=== PATIENT | male | born 1950 | race Caucasian/White ===

== ENCOUNTER 2017-07-31 08:42 | Outpatient (CLI) | payer MEDICARE, OTHER | END 2017-07-31 08:43 | disposition home or self-care (01) | LOC: SC 08:42 | PROVIDERS: ATTEND Nurse Practitioner Family | DX: G47.33 Obstructive sleep apnea (adult) (pediatric) (principal) | CPT/HCPCS: 99214; G0463; 99212 ==

== ENCOUNTER 2017-11-27 09:32 | Outpatient (CLI) | payer MEDICARE, OTHER | END 2017-11-27 09:33 | disposition home or self-care (01) | LOC: SC 09:32 | PROVIDERS: ATTEND Internal Medicine Pulmonary Disease | DX: G47.33 Obstructive sleep apnea (adult) (pediatric) (principal) | CPT/HCPCS: 99213; G0463; 99212 ==

== ENCOUNTER 2018-02-20 10:16 | Outpatient (CLI) | payer MEDICARE, OTHER ==
[2018-02-20 16:17] LABS: RHEUMATOID FACTOR NEGATIVE (Negative)
== END 2018-02-20 10:17 | disposition home or self-care (01) ==
LOC: LAB.WCP 10:16
PROVIDERS: ATTEND Internal Medicine Rheumatology
DX: M25.50 Pain in unspecified joint (principal)
CPT/HCPCS: 36415; 85651; 86140; 86200; 86430

== ENCOUNTER 2019-03-24 14:14 | Outpatient (CLI) | payer MEDICARE, OTHER | END 2019-03-24 14:15 | disposition home or self-care (01) | LOC: SC 14:14 | PROVIDERS: ATTEND Internal Medicine Pulmonary Disease | DX: G47.33 Obstructive sleep apnea (adult) (pediatric) (principal) | CPT/HCPCS: 99213; G0463; 99212 ==

== ENCOUNTER 2019-07-21 09:19 | Outpatient (CLI) | payer MEDICARE, OTHER ==
--- NOTE | 2019-07-21 10:03 | SLEEP CARE CONSULTATION ---
Information from patient questionnaire entered by Sabi Boateng. I have reviewed and concur with the information entered by Sabi Boateng. This document represents the service I personally performed and the decisions made by me, Emiyl Alvarado MD, [facility]. History of Present Illness Previous diagnosis: Severe, Obstructive Sleep Apnea-Hypopnea Syndrome AHI: 36.3 Reason for CPAP/BiPAP follow up: other (2 month follow up - pressure change) Equipment type: BiPAP Equipment obtained from: [employer] Prior sleep studies: Yes Year and Where: 2006 [facility], 2012 [facility] HPI additional information: HPI: Mr. Napoles was diagnosed to have severe obstructive sleep apnea-hypopnea syndrome and returns today for follow up of BiPAP therapy after the pressure was lowered three months ago for comfort. The patient gets his supplies from [employer]. He wears a Respironics AmaraView full face mask. He continues to use the device nightly and all through the night. The compliance report shows that he uses the device 60 nights out of the past 60 nights, averaging 7.4 hours a night. He complains of no particular problem with the device such as soreness on the face, dry nose, epistaxis, nasal congestion or headache. He thinks that the pressure of 19/15 cmH2O is comfortable (21/17 cmH2O was too high). On the BiPAP therapy he notices improvement in his sleep quality, and that he wakes up feeling fresher in the morning and more awake/alert during the day. [place] Sleepiness Scale score is 7. His notices no snore at all. The average residual AHI is 3.6 (was 3.0 on the higher setting); and large leak, 36 minutes a night. CPAP Compliance Data - Data Reviewed with Patient Average duration of nightly device use: 7H 21M Compliance rate %: 100 Current pressure setting (cmH2O): 19/15 Humidity settin Subjective Initial [place] Sleepiness Scale score: 13 Current [place] Sleepiness Scale score: 7 Allergies and Home Medications Drug allergies reviewed: Yes Home medication list reviewed: Yes Review of Systems Review of systems same as previous: Yes Physical Exam Height: 5 ft 10 in Weight: 208 lb Body Mass Index: 29.8 BMI Classification: Overweight Impression and Plan IMPRESSION: 1. Obstructive Sleep Apnea-Hypopnea Syndrome, severe, with the patient continuing to do well on nasal CPAP therapy. He has excellent compliance and significant clinical benefits. The current pressure appears effective and comfortable. Overall, he is very satisfied with treatment and plans to continue with it long-term. No adjustment is necessary today. PLAN: 1. Leave BiPAP at 19/15 cm H2O. 2. Try to lose weight 3. Prescription made for a heated hose and ResMed AirTouch F-20 full face mask. 4. Return for follow up in a year or earlier if there is any problem. I spent 100% of this 15 minute visit face to face with the patient with greater than 50% of this was spent time counseling the patient and coordination of care.
== END 2019-07-21 09:20 | disposition home or self-care (01) ==
LOC: SC 09:19
PROVIDERS: ATTEND Internal Medicine Pulmonary Disease
DX: G47.33 Obstructive sleep apnea (adult) (pediatric) (principal)
CPT/HCPCS: 99213; G0463; 99212

== ENCOUNTER 2020-07-20 09:54 | Outpatient (CLI) | payer MEDICARE, OTHER ==
--- NOTE | 2020-07-20 11:01 | SLEEP CARE CONSULTATION ---
Information from patient questionnaire entered by Radha Joshua. I have reviewed and concur with the information entered by Radha Joshua. This document represents the service I personally performed and the decisions made by me, Emily Alvarado MD, [facility]. History of Present Illness Service Date and Time: 07/20/2020 0954 Previous diagnosis: Severe, Obstructive Sleep Apnea-Hypopnea Syndrome AHI: 36.3 (in 2006) Reason for follow up: annual (last seen 2018) Equipment type: BiPAP Equipment obtained from: [employer] Mask style: Full face Mask brand: Respironics Prior sleep studies: Yes Year and Where: 2006 - [facility], 2012 - [facility] HPI additional information: HPI: Mr. Napoles was diagnosed to have severe obstructive sleep apnea-hypopnea syndrome and returns today for annual follow up of BiPAP therapy. The patient gets his supplies from [employer]. He wears a Respironics AmaraView full face mask (he tried the ResMed AirTouch F-20 full face mask but did not like it). He continues to use the device nightly and all through the night. The compliance report shows that he uses the device 180 nights out of the past 180 nights, averaging 7.1 hours a night. He complains of no particular problem with the device such as soreness on the face, dry nose, epistaxis, nasal congestion or headache. He thinks that the pressure of 19/15 cmH2O is comfortable (21/17 cmH2 O was too high). On the BiPAP therapy he notices improvement in his sleep quality, and that he wakes up feeling fresher in the morning and more awake/alert during the day. [place] Sleepiness Scale score is 5. His notices no snore at all. The average residual AHI is 1.7 (was 3.6 last year); and large leak, 1 hour a night with high leak occurring in February only. Sleep Study - Results Prior sleep studies: Yes Year and Where: 2006 [facility], 2012 [facility] CPAP Compliance Data - Data Reviewed with Patient Average duration of nightly device use: 7.05 Compliance rate %: 100 (180 days) Current pressure setting (cmH2O): 19/15 Humidity settin Heated hose settin Average residual AHI: 1.7 Average large leak: 1 hr 1 min 19 sec Subjective Initial [place] Sleepiness Scale score: 13 (in 2007) Allergies and Home Medications Drug allergies reviewed: Yes Home medication list reviewed: Yes Review of Systems Review of systems same as previous: Yes Physical Exam Height: 5 ft 10 in Weight: 205 lb Weight change since last visit: -5 Body Mass Index: 29.4 BMI Classification: Overweight Impression and Plan IMPRESSION: 1. Obstructive Sleep Apnea-Hypopnea Syndrome, severe, with the patient continuing to do well on BiPAP therapy. He has excellent compliance and significant clinical benefits. The current pressure appears effective and comfortable. Overall, he is very satisfied with treatment and plans to continue with it long-term. Because the residual AHI is low and his air leak is high, I will lower the pressure setting a little. PLAN: 1. Lower BiPAP to 18/14 cm H2O via the modem. 2. Try to lose weight 3. Return for follow up in a year or earlier if there is any problem. Visit Type: In Office Time Spent with Patient (minutes): 15 Provider Statement: I spent 100% of the Face to Face Visit with the patient with greater than 50% spent counseling the patient and coordination of care.
== END 2020-07-20 09:55 | disposition home or self-care (01) ==
LOC: SC 09:54
PROVIDERS: ATTEND Internal Medicine Pulmonary Disease
DX: G47.33 Obstructive sleep apnea (adult) (pediatric) (principal); E66.3 Overweight; Z68.29 Body mass index [BMI] 29.0-29.9, adult
CPT/HCPCS: 99213; G0463; 99212

== ENCOUNTER 2021-07-04 14:41 | Outpatient (CLI) | payer MEDICARE, OTHER ==
--- NOTE | 2021-07-11 21:28 | SLEEP CARE CONSULTATION ---
Information from patient questionnaire entered by Radha Joshua. I have reviewed and concur with the information entered by Radha Joshua. This document represents the service I personally performed and the decisions made by me, Emily Alvarado MD, [facility]. History of Present Illness Service Date and Time: 07/04/2021 1441 Previous diagnosis: Moderate, Severe, Obstructive Sleep Apnea-Hypopnea Syndrome AHI: 19.3 (in 2012)(36.3 in 2006) Reason for follow up: annual (last seen 06/2020) Equipment type: BiPAP Equipment obtained from: [employer] Mask style: Full face Prior sleep studies: Yes Year and Where: 2012 - [facility]; 2006 - [facility] Type of Sleep Study: Polysomnography HPI additional information: Mr. Napoles was diagnosed to have severe obstructive sleep apnea-hypopnea syndrome and returns today for annual follow up of BiPAP therapy. The patient gets his supplies from [employer]. He wears a Respironics AmaraView full face mask (he tried the ResMed AirTouch F-20 full face mask but did not like it). He continues to use the device nightly and all through the night. The compliance report shows that he uses the device 180 nights out of the past 180 nights, averaging 6.9 hours a night. He complains of no particular problem with the device such as soreness on the face, dry nose, epistaxis, nasal congestion or headache. He thinks that the pressure of 18/14 cmH2O is comfortable (21/17 cmH2O was too high). On the BiPAP therapy he notices improvement in his sleep quality, and that he wakes up feeling fresher in the morning and more awake/alert during the day. [place] Sleepiness Scale score is 5. His notices no snore at all. The average residual AHI is 3.4 (was 3.6 last year); and large leak, 14 minutes a night with high leak occurring in February only. CPAP Compliance Data - Data Reviewed with Patient Average duration of nightly device use: 6 hr 55 min Compliance rate %: 98.9 (180 days) Current pressure setting (cmH2O): 18/14 Humidity settin Heated hose settin Average residual AHI: 3.4 Average large leak: 14 min Subjective Initial [place] Sleepiness Scale score: 13 (in 2006) Current [place] Sleepiness Scale score: 5 Allergies and Home Medications Drug allergies reviewed: Yes Home medication list reviewed: Yes Review of Systems Review of systems same as previous: Yes Physical Exam Height: 5 ft 10 in Weight: 205 lb Weight change since last visit: -5 Body Mass Index: 29.4 BMI Classification: Overweight Impression and Plan IMPRESSION: 1. Obstructive Sleep Apnea-Hypopnea Syndrome, severe, with the patient continuing to do well on BiPAP therapy. He has excellent compliance and significant clinical benefits. The current pressure appears effective and comfortable. Overall, he is very satisfied with treatment and plans to continue with it long-term. In regards to the recall on all Stephan Respironics DreamStation devices, we discussed the risks and benefits of stopping versus continuing to use the device. In severe cases, it appears the benefits outweigh the risks and it is reasonable to continue until the replace part or machine becomes available. Symptoms that could be related to the recalled sound abatement foam piece are headache, nausea, chest tightness, and upper airway irritation. The patients should also look for debris in the air outlet, water reservoir, and hose. If found, the device should not be used. In [id number] cases, the patients should refrain from using the device. The patient has already registered his device and is awaiting for the replacement. PLAN: 1. Leave BiPAP at 18/14 cm H2O. 2. Try Respironics DreamWear full face mask and ResMed F30 full face mask. Return for follow up in a year or earlier if there is any problem. Visit Type: In Office Time Spent with Patient (minutes): 15 Provider Statement: I spent 100% of the Face to Face Visit with the patient with greater than 50% spent counseling the patient and coordination of care.
== END 2021-07-04 14:42 | disposition home or self-care (01) ==
LOC: SC 14:41
PROVIDERS: ATTEND Internal Medicine Pulmonary Disease
DX: G47.33 Obstructive sleep apnea (adult) (pediatric) (principal)
CPT/HCPCS: 99212; G0463

== ENCOUNTER 2022-08-14 10:56 | Outpatient (CLI) | payer MEDICARE, OTHER | END 2022-08-14 10:57 | disposition home or self-care (01) | LOC: SC 10:56 | PROVIDERS: ATTEND Internal Medicine Pulmonary Disease | DX: Z53.9 Procedure and treatment not carried out, unspecified reason (principal) ==

== ENCOUNTER 2022-09-04 14:37 | Outpatient (CLI) | payer MEDICARE, OTHER ==
[2022-09-04 15:33] VITALS: BP 120/70
--- NOTE | 2022-09-04 15:33 | SLEEP CARE CONSULTATION ---
Information from patient questionnaire entered by Jose G Bedoya. I have reviewed and concur with the information entered by Jose G Bedoya. This document represents the service I personally performed and the decisions made by me, Emily Alvarado MD, [facility]. History of Present Illness Service Date and Time: 09/04/2022 1437 Previous diagnosis: Moderate, Severe, Obstructive Sleep Apnea-Hypopnea Syndrome AHI: 19.3 (in 2012)(36.3 in 2006) Reason for follow up: annual (LAST SEEN 06/2021) Equipment type: BiPAP (DREAM STATION) Equipment obtained from: [employer] Mask style: Full face Prior sleep studies: Yes Year and Where: 2012 - [facility]; 2006 - [facility] Type of Sleep Study: Polysomnography HPI additional information: Mr. Napoles was diagnosed to have severe obstructive sleep apnea-hypopnea syndrome and returns today for annual follow up of BiPAP therapy. The patient gets his supplies from [employer]. He wears a Respironics AmaraView full face mask (he tried the ResMed AirTouch F-20 full face mask but did not like it). He continues to use the device nightly and all through the night. The compliance report shows that he uses the device 180 nights out of the past 180 nights, averaging 6.9 hours a night. He complains of no particular problem with the device such as soreness on the face, dry nose, epistaxis, nasal congestion or headache. He thinks that the pressure of 18/14 cmH2O is comfortable (21/17 cmH2O was too high). On the BiPAP therapy he notices improvement in his sleep quality, and that he wakes up feeling fresher in the morning and more awake/alert during the day. [place] Sleepiness Scale score is 5. His notices no snore at all. The average residual AHI is 7.1 (was 3.4 last year); and large leak, 5 hours a night with high leak occurring in February only. Sleep Study - Results Type of Sleep Study: Polysomnography Prior sleep studies: Yes Year and Where: 2012 - [facility]; 2006 - [facility] Subjective Initial [place] Sleepiness Scale score: 13 (in 2006) Current [place] Sleepiness Scale score: 6 (09/04/2022) Allergies and Home Medications Drug allergies reviewed: Yes Home medication list reviewed: Yes Allergy and home medication list: Allergies No Known Drug Allergies Allergy (Verified 07/24/14 10:38) Review of Systems Review of systems same as previous: Yes Physical Exam Vital signs obtained and entered by: JOSE G Miranda MA Blood Pressure: 120/70 (LEFT ARM) Cuff size: regular Heart Rate: 72 O2 Saturation: 98 Height: 5 ft 10 in Weight: 195 lb 6.4 oz Body Mass Index: 28.0 BMI Classification: Overweight Impression and Plan IMPRESSION: 1. Obstructive Sleep Apnea-Hypopnea Syndrome, severe, with the patient continuing to do good BiPAP compliance. The pressure setting is not quite effective, but it may be due to the profuse air leak. Because the BiPAP is at its useful life of 5 years, I will order the patient a new one and make set it on the same setting for now. PLAN: 1. Prescription made for a new BiPAP, heated humidifier, and related supplies. 2. Return for follow up after two months of using the BiPAP. Prescriptions: BiPAP Follow up with Sleep Care in: 3 months Visit Type: In Office Time Spent with Patient (minutes): 15 Provider Statement: I spent 100% of the Face to Face Visit with the patient with greater than 50% spent counseling the patient and coordination of care.
== END 2022-09-04 14:38 | disposition home or self-care (01) ==
LOC: SC 14:37
PROVIDERS: ATTEND Internal Medicine Pulmonary Disease
DX: G47.33 Obstructive sleep apnea (adult) (pediatric) (principal)
CPT/HCPCS: 99212; G0463

== ENCOUNTER 2023-04-11 09:18 | Outpatient (CLI) | payer MEDICARE, OTHER | END 2023-04-11 09:19 | disposition home or self-care (01) | LOC: DI 09:18 | PROVIDERS: ATTEND Family Medicine | DX: R00.9 Unspecified abnormalities of heart beat (principal); R60.0 Localized edema | CPT/HCPCS: 93306 ==

== ENCOUNTER 2023-04-30 14:37 | Outpatient (CLI) | payer MEDICARE, OTHER ==
--- NOTE | 2023-04-30 14:55 | SLEEP CARE CONSULTATION ---
Information from patient questionnaire entered by Jose G Bedoya. I have reviewed and concur with the information entered by Jose G Bedoya. This document represents the service I personally performed and the decisions made by me, Emily Alvarado MD, [facility]. History of Present Illness Service Date and Time: 04/30/2023 1437 Previous diagnosis: Moderate, Severe, Obstructive Sleep Apnea-Hypopnea Syndrome AHI: 19.3 (in 2012)(36.3 in 2006) Reason for follow up: first compliance Equipment type: BiPAP (RESMED) Equipment obtained from: [employer] Mask style: Full face Prior sleep studies: Yes Year and Where: 2012 - [facility]; 2006 - [facility] Type of Sleep Study: Polysomnography HPI additional information: Mr. Napoles was diagnosed to have severe obstructive sleep apnea-hypopnea syndrome and returns today for a follow up of BiPAP therapy. The patient recently acquired a new device from [employer]. He wears a Respironics AmaraView full face mask (he tried the ResMed AirTouch F-20 full face mask but did not like it). He uses the device nightly and all through the night. The compliance report shows that he uses the device 120 nights out of the past 120 nights, averaging 6.6 hours a night. He complains of no particular problem with the device such as soreness on the face, dry nose, epistaxis, nasal congestion or headache. He thinks that the pressure of 18/14 cmH2O is comfortable (21/17 cmH2O was too high). On the BiPAP therapy he notices improvement in his sleep quality, and that he wakes up feeling fresher in the morning and more awake/alert during the day. [place] Sleepiness Scale score is 7. His notices no snore at all. The average residual AHI is 4.8 (was 3.4 last year); and average air leak is 4.4 L/minute. Most of the residual respiratory events are obstructive apneas. Sleep Study - Results Type of Sleep Study: Polysomnography Prior sleep studies: Yes Year and Where: 2012 - [facility]; 2006 - [facility] CPAP Compliance Data - Data Reviewed with Patient Average duration of nightly device use: 6HRS 47MIN Compliance rate %: 100 (03/28/23-04/26/23) Current pressure setting (cmH2O): 18/14 Average residual AHI: 4.8 Subjective Initial [place] Sleepiness Scale score: 13 (in 2006) Current [place] Sleepiness Scale score: 7 (04/30/23) Allergies and Home Medications Drug allergies reviewed: Yes Home medication list reviewed: Yes Allergy and home medication list: Allergies No Known Drug Allergies Allergy (Verified 04/27/23 10:38) Review of Systems Review of systems same as previous: Yes Physical Exam Vital signs obtained and entered by: JOSE G Miranda MA Blood Pressure: 126/70 (LEFT ARM) Cuff size: regular Heart Rate: 79 O2 Saturation: 98 Height: 5 ft 10 in Weight: 202 lb 9.6 oz Body Mass Index: 29.0 BMI Classification: Overweight Impression and Plan IMPRESSION: 1. Obstructive Sleep Apnea-Hypopnea Syndrome, severe, with the patient continuing to do well on the BiPAP therapy. He has excellent compliance. The current pressure setting appears effective and comfortable. PLAN: 1. Continue with BiPAP set at 18/14 cmH2O. 2. Return for follow up in a year or earlier if there is any problem. Continue with device pressure at (cmH2O): 18/14 Follow up with Sleep Care in: 1 year Visit Type: In Office Time Spent with Patient (minutes): 15 Provider Statement: I spent 100% of the Face to Face Visit with the patient with greater than 50% spent counseling the patient and coordination of care.
[2023-04-30 14:56] VITALS: BP 126/70
== END 2023-04-30 14:38 | disposition home or self-care (01) ==
LOC: SC 14:37
PROVIDERS: ATTEND Internal Medicine Pulmonary Disease
DX: G47.33 Obstructive sleep apnea (adult) (pediatric) (principal); E66.3 Overweight; Z68.29 Body mass index [BMI] 29.0-29.9, adult
CPT/HCPCS: 99212; G0463

== ENCOUNTER 2024-02-06 15:50 | Outpatient (CLI) | payer MEDICARE, OTHER ==
--- NOTE | 2024-02-07 10:28 | MRI Report ---
PROCEDURE: Lumbar Spine WO INDICATIONS: SPINAL STENOSIS TECHNIQUE: Noncontrast sagittal T1 spin echo and T2 fast echo, sagittal STIR, axial T1 and T2 fast spin echo thr ough the lumbar spine. In cases with scoliosis, additional coronal T2 fast spin echo may be performe d. COMPARISON: None. FINDINGS: Image quality: Diagnostic. Alignment and Curvature: There is mildly accentuated lumbar lordosis. Minimal retrolisthesis can be seen at L5-S1. Bone Marrow: Several scattered foci of abnormal signal can be seen within the bone marrow, with incre ased T2-weighted signal and increased T2-weighted signal, yet with decreased STIR signal. The most pr ominent disease can be seen within the S1 level. No acute vertebral body compression fractures. Spinal Cord: Conus medullaris terminates at the L1 level. Visualized cord demonstrates normal signa l and size. Paraspinous Soft Tissues: No paravertebral masses. Bladder single left renal cysts can be seen. T12-L1: Normal in appearance. L1-L2: Normal in appearance. L2-L3: No significant abnormality is seen. L3-L4: The disc height is well-preserved. There is loss of disc signal seen. Mild disc bulge is se en. Mild facet hypertrophy is seen. Minimal to mild bilateral neuroforaminal narrowing can be seen. Minimal central canal narrowing is seen. L4-L5: The disc height is well-preserved. There is loss of disc signal seen. Mild disc bulge is seen. Mild to moderate facet hypertrophy is seen. Mild bilateral neural foraminal narrowing is see n. Minimal central canal narrowing is seen. L5-S1: The disc height is well-preserved. There is loss of disc signal seen. Mild disc bulge is se en. Mild facet hypertrophy is seen. There is mild to moderate left-sided and mild right-sided neur oforaminal narrowing. No significant central canal narrowing is seen. IMPRESSION: Overall mild degenerative change can be seen, which is worst at the L5-S1 level. Multiple foci of abnormal bone marrow signal can be seen. The appearance is most consistent with jozef gn fatty metaplasia. Reviewed by: Ranjeet Hercules MD on 02/07/2024 9:27 AM SHEFALI Approved by: Ranjeet Hercules MD on 02/07/2024 9:27 AM AKJET Station ID: [id number]
== END 2024-02-06 15:51 | disposition home or self-care (01) ==
LOC: DI 15:50
PROVIDERS: ATTEND Physical Medicine & Rehabilitation
DX: M47.816 Spondylosis without myelopathy or radiculopathy, lumbar region (principal); M47.817 Spondylosis without myelopathy or radiculopathy, lumbosacral region; M51.37 Other intervertebral disc degeneration, lumbosacral region; M48.07 Spinal stenosis, lumbosacral region; M51.36 Other intervertebral disc degeneration, lumbar region; M48.061 Spinal stenosis, lumbar region without neurogenic claudication

== ENCOUNTER 2024-06-02 09:59 | Outpatient (CLI) | payer MEDICARE, OTHER ==
[2024-06-02 10:23] VITALS: BP 142/74; O2SAT 98
--- NOTE | 2024-06-02 10:23 | SLEEP CARE CONSULTATION ---
Information from patient questionnaire entered by Jose G Bedoya. I have reviewed and concur with the information entered by Jose G Bedoya. This document represents the service I personally performed and the decisions made by me, Emily Alvarado MD, [facility]. History of Present Illness Service Date and Time: 06/02/2024 0959 Previous diagnosis: Moderate, Severe, Obstructive Sleep Apnea-Hypopnea Syndrome AHI: 19.3 (in 2012)(36.3 in 2006) Reason for follow up: annual (LAST SEEN 04/2023) Equipment type: BiPAP (RESMED) Equipment obtained from: [employer] Mask style: Full face Prior sleep studies: Yes Year and Where: 2012 - [facility]; 2006 - [facility] Type of Sleep Study: Polysomnography HPI additional information: Mr. Napoles was diagnosed to have severe obstructive sleep apnea-hypopnea syndrome and returns today for a follow up of BiPAP therapy. The patient recently acquired a new device from [employer]. He wears a Respironics AmaraView full face mask (he tried the ResMed AirTouch F-20 full face mask but did not like it). He uses the device nightly and all through the night. The compliance report shows that he uses the device 363 nights out of the past 365 nights, averaging 6.6 hours a night. He complains of no particular problem with the device such as soreness on the face, dry nose, epistaxis, nasal congestion or headache. He thinks that the pressure of 18/14 cmH2O is comfortable (21/17 cmH2O was too high). On the BiPAP therapy he notices improvement in his sleep quality, and that he wakes up feeling fresher in the morning and more awake/alert during the day. [place] Sleepiness Scale score is 5. His notices no snore at all. The average residual AHI is 4.4 (was 4.8 last year); and average air leak is 2.8 L/minute. The residual AHI was higher in October because he was on opiate pain meds after his hip replacement surgery. PE: To minimize the risk of COVID-19 exposure, detailed exam was not performed. Wt is 205 lbs (as 210 lbs). Sleep Study - Results Type of Sleep Study: Polysomnography Prior sleep studies: Yes Year and Where: 2012 - [facility]; 2006 - [facility] CPAP Compliance Data - Data Reviewed with Patient Average duration of nightly device use: 6HRS 38MINS Compliance rate %: 99 (05/30/23-05/28/24) Current pressure setting (cmH2O): 18/14 Average residual AHI: 4.5 Subjective Missed days of use due to: reports: travel Initial [place] Sleepiness Scale score: 13 (in 2006) Current [place] Sleepiness Scale score: 5 (06/02/24) Allergies and Home Medications Drug allergies reviewed: Yes Home medication list reviewed: Yes Allergy and home medication list: Allergies No Known Drug Allergies Allergy (Verified 06/02/24 10:01) Review of Systems Review of systems same as previous: Yes (RIGHT HIP REPLACEMENT 09/2023) Physical Exam Vital signs obtained and entered by: JOSE G Miranda MA Blood Pressure: 142/74 (RIGHT ARM) Cuff size: regular Heart Rate: 63 O2 Saturation: 98 Height: 5 ft 10 in Weight: 204 lb 6.4 oz Body Mass Index: 29.3 BMI Classification: Overweight Impression and Plan IMPRESSION: 1. Obstructive Sleep Apnea-Hypopnea Syndrome, severe, with the patient continuing to do well on the BiPAP therapy. He has excellent complia nce. The current pressure setting appears effective and comfortable. No adjustment is necessary today. PLAN: 1. Continue with BiPAP set at 18/14 cmH2O. 2. Return for follow up in a year or earlier if there is any problem. Continue with device pressure at (cmH2O): 18/14 Follow up with Sleep Care in: 1 year Visit Type: In Office Time Spent with Patient (minutes): 15 Provider Statement: I spent 100% of the Face to Face Visit with the patient with greater than 50% spent counseling the patient and coordination of care.
== END 2024-06-02 10:00 | disposition home or self-care (01) ==
LOC: SC 09:59
PROVIDERS: ATTEND Internal Medicine Pulmonary Disease
DX: G47.33 Obstructive sleep apnea (adult) (pediatric) (principal)
CPT/HCPCS: 99212; G0463